=== PATIENT | male | born 1985 | race African-American/Black ===

== ENCOUNTER 2020-08-07 21:19 | Emergency (ER) | payer OTHER ==
[~2020-08-07] VITALS: Ht 177.8 cm; Wt 195.0 kg
--- NOTE | 2020-08-07 21:25 | NUR ---
ED Nurse Note: Patient walked into ED for c/o L arm and L leg pain that has become worse and keeps him awake at night over the past week. He also has swelling to bilat legs. He denies any trauma or injury to L arm or leg. Patient also has rash to leg. Denies chest pain, cough, SOB or fever. He is aaox4, breathing is normal and unlabored. He is ambulatory with steady gait. IV line established, blood drawn by RN and sent to lab. Pt in bed, will cont. to monitor.
--- NOTE | 2020-08-07 22:11 | Emergency Room Report ---
History of Present Illness General Chief Complaint: Pain Source: Patient Present Illness HPI Patient presents with 1 week of left hand pain and swelling. It is worse when the hand is dependent and also is increased when he tries to sleep. He feels a through the whole arm and also he has neck pain associated with this at that radiates up towards the back of his head. He rates the pain 8/10. He has been taking [id number] ibuprofen which is helped minimally. A friend of his gave him 800 mg ibuprofen that helped a little bit more. He is also been having polyuria and sometimes the urine is been completely clear. The pain is made it difficult for him to sleep. He also says that he had taken a friend's water pill within the last year to help with the swelling in his legs. He has pain and itching in his left lower leg where the swelling is and also a rash there. Denies any fevers or chills. He denies exposure to Covid positive contacts. The patient was seen in urgent care a year ago and told the main problem is that he needed to lose weight. He also said that he had congestive heart failure. No medications were prescribed at that time. No sore throat, chest pain, palpitations, nausea, vomiting, diarrhea, dysuria, abdominal pain, shortness of breath, depression, anxiety, visual changes, dizziness, headache. Allergies: Coded Allergies: No Known Allergies (Unverified , 08/07/20) COVID-19 Screening Contact w/high risk pt: No Experienced COVID-19 symptoms?: No COVID-19 Testing performed HAND SPINNER: No Patient History Past Medical History: see triage record Pertinent Family History: other - No diabetes Social History: Reports: alcohol use - Rare wine or beer; Denies: smoking, drug use Social History Narrative patrol guard Reviewed Nursing Documentation: PMH: Agreed; PSxH: Agreed Nursing Documentation-PMH Past Medical History: No History, Except For Review of Systems All Other Systems: negative except mentioned in HPI Physical Exam Vital Signs Date Time Temp Pulse Resp B/P (MAP) Pulse Ox O2 Delivery O2 Flow Rate FiO2 08/07/20 21:20 97.9 95 18 141/84 (103) 96 Room Air Sp02 EP Interpretation: reviewed, normal - Interpreted by me is slightly low General Appearance: well appearing, no apparent distress, GCS 15, non-toxic, obese Head: normocephalic Eyes: bilateral eye normal inspection, bilateral eye PERRL, bilateral eye EOMI ENT: moist mucus membranes Neck: supple Respiratory: lungs clear, normal breath sounds Cardiovascular #1: regular rate, rhythm, edema - 1+ bilaterally Cardiovascular #2: 2+ radial (R) - Good capillary fill, 2+ radial (L), 2+ dorsalis pedis (R), 2+ dorsalis pedis (L) Gastrointestinal: normal inspection, normal bowel sounds, non tender, no mass, non-distended, overweight Genitourinary: no CVA tenderness Musculoskeletal: back normal, normal range of motion - No increased pain with full range of motion of the left shoulder, no calf tenderness, gait/station normal Neurologic: alert, oriented x3, grossly normal Psychiatric: mood/affect normal Skin: warm/dry, other - Punctate lesions bilaterally lower extremities with minimal erythema Medical Decision Making Diagnostic Impression: Primary Impression: Left arm pain Additional Impressions: Sleep apnea Qualified Codes: G47.30 - Sleep apnea, unspecified Hyperglycemia Renal insufficiency Edema Qualified Codes: R60.0 - Localized edema ER Course Patient presents with 1 week of left hand pain and swelling with swelling in his lower extremities and rash. Differential includes radiculopathy from the neck, gout, congestive heart failure, cardiac cause including congestive heart failure, diabetes amongst others. Patient evaluated with EKG, chest x-ray, cervical spine x-ray and shoulder x-ray and labs. Patient placed on a shelter monitor. Patient also given a dose of Tylenol initially. EKG normal sinus rhythm with minimal voltage criteria for left ventricular hypertrophy and nonspecific ST-T wave changes. Rate of 84. Chest x-ray no infiltrates. Left shoulder normal. C-spine with minimal degenerative disease. Labs remarkable for renal insufficiency and normal CBC with elevated blood glucose. Patient observed to have apneic episodes and hypoxia with snoring. Patient also diaphoretic at that time. Rouses slowly but fully. Patient reports decreased pain with Tylenol. Discussed findings with patient and . Discussed treatment plan and the importance of follow-up with a primary physician. Patient reluctant to take Metformin at this time. Instructed and patient in use of Accu-Chek and ALLISON stockings. Also advised patient that CPAP might help. Advised against use of nonsteroidal anti-inflammatories in the presence of diabetes and renal insufficiency. Suggested the patient may benefit from gastric sleeve surgery. Advised the patient that weight loss may obviate the need for diabetic medication. No medical emergency at this time. Patient stable for outpatient observation and treatment. Laboratory Tests Test 08/07/20 22:05 08/07/20 22:16 White Blood Count 7.1 K/UL (4.8-10.8) Red Blood Count 5.27 M/UL (4.70-6.10) Hemoglobin 14.4 G/DL (14.2-18.0) Hematocrit 44.0 % (42.0-52.0) Mean Corpuscular Volume 84 FL (80-99) Mean Corpuscular Hemoglobin 27.4 PG (27.0-31.0) Mean Corpuscular Hemoglobin Concent 32.8 G/DL (32.0-36.0) Red Cell Distribution Width 13.6 % (11.6-14.8) Platelet Count 250 K/UL (150-450) Mean Platelet Volume 8.0 FL (6.5-10.1) Neutrophils (%) (Auto) 64.2 % (45.0-75.0) Lymphocytes (%) (Auto) 23.6 % (20.0-45.0) Monocytes (%) (Auto) 9.4 % (1.0-10.0) Eosinophils (%) (Auto) 1.3 % (0.0-3.0) Basophils (%) (Auto) 1.5 % (0.0-2.0) Erythrocyte Sedimentation Rate 8 MM/HR (0-15) Prothrombin Time 10.5 SEC (9.30-11.50) Prothrombin Time INR 0.9 (0.9-1.1) Activated Partial Thromboplast Time 26 SEC (23-33) Sodium Level 137 MMOL/L (136-145) Potassium Level 4.2 MMOL/L (3.5-5.1) Chloride Level 104 MMOL/L (98-107) Carbon Dioxide Level 27 MMOL/L (21-32) Anion Gap 6 mmol/L (5-15) Blood Urea Nitrogen 14 mg/dL (7-18) Creatinine 1.4 MG/DL (0.55-1.30) H Estimated Glomerular Filtration Rate > 60 mL/min (>60) Glucose Level 254 MG/DL (74-106) H Calcium Level 8.8 MG/DL (8.5-10.1) Total Bilirubin 0.2 MG/DL (0.2-1.0) Aspartate Amino Transferase (AST) 31 U/L (15-37) Alanine Aminotransferase (ALT) 41 U/L (12-78) Alkaline Phosphatase 65 U/L (46-116) Total Creatine Kinase 1567 U/L (26-308) H Troponin I 0.015 ng/mL (0.000-0.056) Pro-B-Type Natriuretic Peptide 43 pg/mL (0-125) Total Protein 6.9 G/DL (6.4-8.2) Albumin 3.6 G/DL (3.4-5.0) Globulin 3.3 g/dL Albumin/Globulin Ratio 1.1 (1.0-2.7) Lipase 147 U/L (73-393) Thyroid Stimulating Hormone (TSH) 2.789 uiU/mL (0.358-3.740) Urine Color Pale yellow Urine Appearance Clear Urine pH 6 (4.5-8.0) Urine Specific [place] 1.015 (1.005-1.035) Urine Protein Negative (NEGATIVE) Urine Glucose (UA) 1+ (NEGATIVE) H Urine Ketones Negative (NEGATIVE) Urine Blood Negative (NEGATIVE) Urine Nitrite Negative (NEGATIVE) Urine Bilirubin Negative (NEGATIVE) Urine Urobilinogen Normal MG/DL (0.0-1.0) Urine Leukocyte Esterase Negative (NEGATIVE) Urine Opiates Screen Negative (NEGATIVE) Urine Barbiturates Screen Negative (NEGATIVE) Phencyclidine (PCP) Screen Negative (NEGATIVE) Urine Amphetamines Screen Negative (NEGATIVE) Urine Benzodiazepines Screen Negative (NEGATIVE) Urine Cocaine Screen Negative (NEGATIVE) Urine Marijuana (THC) Screen Negative (NEGATIVE) EKG Diagnostic Results Troponin ordered: Yes Rate: normal Rhythm: NSR ST Segments: no acute changes Rhythm Strip Diag. Results EP Interpretation: yes Rhythm: NSR, no PVC's, no ectopy Chest X-Ray Diagnostic Results Chest X-Ray Diagnostic Results : Chest X-Ray Ordered: Yes # of Views/Limited/Complete: 1 View Indication: Other EP Interpretation: Yes Interpretation: no consolidation, no effusion, no pneumothorax Impression: No acute disease Electronically Signed by: Electronically signed by Kenney George MD Other X-Ray Diagnostic Results Other X-Ray Diagnostic Results #1: X-Ray ordered: C-spine # of Views/Limited Vs Complete: 3 View Indication: Pain EP Interpretation: Yes Interpretation: no dislocation, no soft tissue swelling, no fractures, other - DJD Impression: Other Electronically Signed by: Electronically signed by Kenney George MD Other X-Ray Diagnostic Results #2: # of Views/Limited Vs Complete: 3 View Indication: Pain EP Interpretation: Yes Interpretation: no dislocation, no soft tissue swelling, no fractures Impression: No acute disease Electronically Signed by: Electronically signed by Kenney George MD Last Vital Signs Date Time Temp Pulse Resp B/P (MAP) Pulse Ox O2 Delivery O2 Flow Rate FiO2 08/08/20 00:25 98.3 80 18 139/88 97 Room Air Status: improved Disposition: HOME, SELF-CARE Condition: Improved Scripts Acetaminophen* (TYLENOL EXTRA STRENGTH*) 500 Mg Tablet 1000 MG ORAL Q6H, #30 TAB Prov: Kenney George MD 08/08/20 Metformin Hcl* (METFORMIN HCL*) 500 Mg Tablet 500 MG ORAL TWICE A DAY for Diabetes Mellitus, #60 TAB 1 Refill Prov: Kenney George MD 08/08/20 Lancing Device/Lancets (ACCU-CHEK MULTICLIX LANCET KIT) 1 Each Kit EACH MC NEEDED for check glucose, #60 Prov: Kenney George MD 08/08/20 Blood-Glucose Meter (Accu-Chek Guide Me Glucose Mtr) 1 Each Each EACH MC NEEDED for check glucose, #1 Prov: Kenney George MD 08/08/20 Comp.stocking,Thigh,Short,Lrg (T.E.D. ANTI-EMBOLISM STOCKING) 1 Each Each % MC DAILY PRN for edema, #1 2 Refills Pair - needs bilaterally Prov: Kenney George MD 08/08/20 Referrals: NON PHYSICIAN (PCP) Kenney George MD Aug 07, 2020 22:11
[2020-08-07] MEDS ORDERED: Acetaminophen 500mg (ES) tab ORAL ONE (22:15)
[2020-08-07 22:20] LABS: BASOPHILS % (AUTO) 1.5 % (0.0-2.0); EOSINOPHILS % (AUTO) 1.3 % (0.0-3.0); HEMOGLOBIN 14.4 G/DL (14.2-18.0); LYMPHOCYTES % (AUTO) 23.6 % (20.0-45.0); MEAN CORPUSCULAR VOLUME 84 FL (80-99); MONOCYTES % (AUTO) 9.4 % (1.0-10.0); NEUTROPHILS % (AUTO) 64.2 % (45.0-75.0); PLATELET COUNT 250 K/UL (150-450); RED BLOOD COUNT 5.27 M/UL (4.70-6.10); RED CELL DISTRIBUTION WIDTH 13.6 % (11.6-14.8); WHITE BLOOD COUNT 7.1 K/UL (4.8-10.8)
[2020-08-07 22:26] LABS: APPEARANCE,URINE CLEAR; BILIRUBIN, URINE NEGATIVE (NEGATIVE); COLOR,URINE PALE YELLOW; GLUCOSE, URINE (UA) 1+ (NEGATIVE); KETONES,URINE NEGATIVE (NEGATIVE); LEUKOCYTE ESTERASE ,URINE NEGATIVE (NEGATIVE); NITRITE,URINE NEGATIVE (NEGATIVE); PH,URINE 6 (4.5-8.0); PROTEIN,URINE NEGATIVE (NEGATIVE); UROBILINOGEN,URINE NORMAL MG/DL (0.0-1.0)
[2020-08-07 22:39] LABS: INR 0.9 (0.9-1.1)
[2020-08-07 22:49] LABS: ANION GAP 6 mmol/L (5-15); BLOOD UREA NITROGEN 14 mg/dL (7-18); CALCIUM 8.8 MG/DL (8.5-10.1); CARBON DIOXIDE 27 MMOL/L (21-32); CHLORIDE 104 MMOL/L (98-107); CREATININE 1.4 MG/DL (0.55-1.30); POTASSIUM 4.2 MMOL/L (3.5-5.1); SODIUM 137 MMOL/L (136-145)
[2020-08-07 22:54] VITALS: BP 141/84
[2020-08-07 23:02] LABS: ALANINE AMINOTRANSFERASE 41 U/L (12-78); ALBUMIN 3.6 G/DL (3.4-5.0); ALBUMIN/GLOBULIN RATIO 1.1 (1.0-2.7); ALKALINE PHOSPHATASE 65 U/L (46-116); ASPARTATE AMINO TRANSFERASE 31 U/L (15-37); BILIRUBIN,TOTAL 0.2 MG/DL (0.2-1.0); CREATINE KINASE 1567 U/L (26-308)
[2020-08-08] MEDS ORDERED: METFORMIN HCL500 M1 ORAL (00:07)
[2020-08-08] MEDS ORDERED: T.E.D. ANTI-EM1 EA10 MC (00:07)
[2020-08-08] MEDS ORDERED: ACCU-CHEK MULT1 EACH MC (00:07)
[2020-08-08] MEDS ORDERED: ACCU-CHEK GUID1 EAC3 MC (00:07)
[2020-08-08] MEDS ORDERED: ACETAMINOPHEN500 MG ORAL (00:07)
--- NOTE | 2020-08-08 00:10 | NUR ---
ED Nurse Note: RICARDOD bedside speaking with patient and patient's .
[2020-08-08 00:25] VITALS: BP 139/88
--- NOTE | 2020-08-08 00:25 | NUR ---
ER DISCHARGE NOTE: Patient is cleared to be discharged per ERMD, pt is aox4, on room air, with stable vital signs. pt was given dc and prescription instructions, pt was able to verbalize understanding, pt id band and iv site removed without complications. pt is able to ambulate with steady gait. pt took all belongings.
--- NOTE | 2020-08-08 12:27 | Diagnostic Imaging Report ---
EXAM: X-RAY XRAY Shoulder Compl L CLINICAL HISTORY: Shoulder pain. COMPARISON: None FINDINGS: Total of 3 views of the left shoulder were obtained. Alignment is anatomic. There is no fracture, bony lesions or erosions. Joint spaces are unremarkable. Surrounding soft tissue is normal. IMPRESSION: NO ACUTE BONY ABNORMALITY.
--- NOTE | 2020-08-08 12:28 | Diagnostic Imaging Report ---
EXAM: X-RAY XRAY C Spine 2-3v CLINICAL HISTORY: Neck pain. COMPARISON: None FINDINGS: Total of 3 views of the cervical spine were obtained. Study limited due to motion. Alignment is grossly anatomic to the extent visualized. No fracture lucency or compression deformity noted. Disc spaces relatively well-maintained. There is no prevertebral soft tissue swelling. IMPRESSION: MOTION ARTIFACTS. NO ACUTE ABNORMALITY TO THE EXTENT VISUALIZED.
--- NOTE | 2020-08-08 12:29 | Diagnostic Imaging Report ---
Procedure: XRAY Chest 1v Reason for study: Chest pain. Comparison films: None. FINDINGS: A single one view chest is obtained. Vascularity is normal. The lung knight are clear bilaterally. Cardiac and mediastinal silhouette are within normal limits. CP angles are sharp. The bony thorax appear unremarkable. IMPRESSION: NO ACUTE CARDIOPULMONARY DISEASE.
== END 2020-08-08 00:25 | disposition home or self-care (01) ==
LOC: EMR 21:54
DX: M79.602 Pain in left arm (principal); G47.30 Sleep apnea, unspecified; R60.0 Localized edema; N28.9 Disorder of kidney and ureter, unspecified; E66.9 Obesity, unspecified; M54.2 Cervicalgia; R21 Rash and other nonspecific skin eruption; M50.30 Other cervical disc degeneration, unspecified cervical region; R09.02 Hypoxemia; I51.7 Cardiomegaly; M25.512 Pain in left shoulder
CPT/HCPCS: 36415; 71045; 72040; 73030; 80053; 80307; 81003; 82550; 83690; 83880; 84443; 84484; 85025; 85610; 85651; 85730; 93005; Z7502; 99284